=== PATIENT | male | born 1950 | race Caucasian/White ===

== ENCOUNTER 2023-03-10 20:47 | Emergency (ER) | payer MEDICARE ==
[~2023-03-10] VITALS: Ht 177.8 cm; Wt 84.4 kg
[2023-03-10 22:05] LABS: BASOPHILS % (AUTO) 0.4 % (0.0-2.0); DIFFERENTIAL COMMENT 0; HEMATOCRIT 51.5 % (36.7-47.1); HEMOGLOBIN 16.7 g/dL (12.5-16.3); LYMPHOCYTES # (AUTO) 0.4 K/uL (0.8-4.8); LYMPHOCYTES % (AUTO) 6.3 % (20.5-51.5); MEAN CORPUSCULAR HEMOGLOBIN 30.8 uug (23.8-33.4); MEAN CORPUSCULAR HGB CONC 32 g/dL (32.5-36.3); MEAN CORPUSCULAR VOLUME 94.9 fL (73.0-96.2); MONOCYTES # (AUTO) 1.2 K/uL (0.1-1.30); MONOCYTES % (AUTO) 18.2 % (0.0-11.0); NEUTROPHILS # (AUTO) 5.1 K/uL (1.8-8.9); NEUTROPHILS % (AUTO) 75.1 % (38.5-71.5); PLATELET COUNT (AUTO) 120 K/uL (152-348); RED BLOOD CELL COUNT(AUTO) 5.43 MIL/uL (4.06-5.63); WHITE BLOOD COUNT (AUTO) 6.7 K/uL (3.6-10.2)
[2023-03-10 22:15] LABS: BILIRUBIN,TOTAL 0.5 mg/dL (0.2-1.0); TOTAL PROTEIN, SERUM 6.5 g/dL (6.4-8.2)
[2023-03-10] MEDS ORDERED: diphenhydrAMINE 50 MG CAPSULE PO ONE (23:45)
[2023-03-11 00:05] LABS: ANISOCYTOSIS 1+; LYMPHOCYTES % (MANUAL) 9 % (20-40); MONOCYTES % (MANUAL) 21 % (2-10); NEUTROPHILS % (MANUAL) 70 % (42-75); PLATELET ESTIMATE MODERATELY DECREASED
[2023-03-11] MEDS ORDERED: diphenhydrAMINE 50 MG CAPSULE ONE (00:05)
[2023-03-11] MEDS ORDERED: LORAZEPAM 1 MG TABLET ONE (03:21)
[2023-03-11] MEDS ORDERED: LORAZEPAM 0.5 MG TABLET PO ONE (03:30)
[2023-03-11] MEDS ORDERED: LORA-259 PO (05:57)
[2023-03-11] MEDS ORDERED: NITR-84 PO (06:03)
[2023-03-11] MEDS ORDERED: NITROFURANTOIN/NITROFURAN MAC 100 MG CAPSULE PO ONE ×2 (06:13→06:15)
[2023-03-11 06:18] VITALS: BP 144/88; O2SAT 95
== END 2023-03-11 06:18 | disposition home or self-care (01) ==
LOC: ER 20:54
DX: S09.90XA Unspecified injury of head, initial encounter (principal); F10.129 Alcohol abuse with intoxication, unspecified; W18.39XA Other fall on same level, initial encounter; Y93.89 Activity, other specified; Y92.89 Other specified places as the place of occurrence of the external cause; Y99.8 Other external cause status; Y90.8 Blood alcohol level of 240 mg/100 ml or more
CPT/HCPCS: 80053; 83690; 85007; 85025; 36415; 70450; 99285; 80320; Q0163; 70030-TC; A4606; A4663; G0480